=== PATIENT | female | born 1970 | race Caucasian/White ===

== ENCOUNTER 2019-11-03 10:24 | Emergency (ER) | payer BC, MEDICAID, SELFPAY ==
[2019-11-03 10:37] VITALS: BP 156/71; PULSE 83; RESP 18; TEMP 37.1; O2SAT 96; BMI 48.0
--- NOTE | 2019-11-03 10:48 | W.ED.SKABFB ---
HPI - Skin/Abscess/Foreign Bdy General: Chief complaint: Skin/Abscess/Foreign Body Stated complaint: rash on leg Time Seen by Provider: 11/03/19 10:26 Source: patient History of Present Illness: HPI narrative: Patient was working in yard weed eating wearing shorts, patient states that she got into some weeds that she was trimming back. Shortly that evening and into this morning she has developed a rash covering her lower extremities with areas of blistering along the bends of her knees and inner aspect of bilateral lower legs. Patient states that areas the grass flew up and hit her along her neck are also starting to have small blistering areas. 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 MD complaint: rash Location: generalized, neck, LLE and RLE Severity: moderate Quality: pruritic Pain Consistency: constant Treatments prior to arrival: other (She has been spraying alcohol to dry the rash.) Review of Systems General: Reports: 10 or more systems reviewed and unremarkable except in HPI and below Skin/Breast: Reports: rash, pruritus, erythema and sores Physical Exam Const: COMMON NORMALS: no acute distress, average body habitus and patient oriented x3 HENMT: COMMON NORMALS: normocephalic and atraumatic HEAD & SCALP: normocephalic and atraumatic Eye: COMMON NORMALS: Equal, round and reactive pupils present GENERAL EYE: appearance normal, both eyes and all related structures PUPIL: Yes Equal, round and reactive pupils present Neck/C-Spine: COMMON NORMALS: full ROM, no lymphadenopathy and no JVD GENERAL: Yes normal visual inspection Lymph: LYMPHATIC: no lymphadenopathy noted Resp: COMMON NORMALS: normal respiratory effort, No retractions, No use of accessory muscles, clear to auscultation bilaterally and percussion normal AUSCULTATION: clear to auscultation bilaterally PERCUSSION: percussion normal Cardio: COMMON NORMALS: no JVD, regular rate, regular rhythm, S1 normal heart sound present and S2 normal heart sound present RATE: regular rate RHYTHM: regular rhythm HEART SOUNDS: S1 normal heart sound present and S2 normal heart sound present GI: COMMON NORMALS: Normal to inspection, nondistended, normoactive bowel sounds present, Soft to palpation and non-tender PALPATION: Yes Soft to palpation Neuro: COMMON NORMALS: patient oriented x3, CN's II-XII intact bilaterally and moves all extremities Psych: COMMON NORMALS: mental status grossly normal, Normal thought process present and cooperative THOUGHT PROCESS: Normal thought process present Skin: SKIN IMAGES (FEMALE): 1. Diffuse rash covering bilateral lower extremities areas of blistering, and ruptured blistering. Erythema. 2. Diffuse rash covering bilateral lower extremities areas of blistering, and ruptured blistering. Erythema. Course Vital Signs: Vital signs: Vital Signs Temperature 98.8 F 11/03/19 10:37 Pulse Rate 83 11/03/19 10:37 Respiratory Rate 18 11/03/19 10:37 Blood Pressure 156/71 11/03/19 10:37 Pulse Oximetry 96 11/03/19 10:37 Discharge Plan Discharge Patient Disposition: Home, Self-Care Clinical Impression: Poison oak dermatitis Condition: Stable Prescriptions: New hydroxyzine HCl 50 mg tablet 50 mg PO Q6H 3 Days Qty: 12 RF: 0 prednisone 5 mg tablets,dose pack See Rx Instructions .ROUTE .COMPLEX Qty: 21 RF: 0 Held hydroxyzine HCl 25 mg Tablet 25 mg PO BID PRN (Reason: Anxiety) RF: 0 Hold Instructions: Resume on 11/06/19. No Action oxycodone-acetaminophen 10-325 mg tablet 1 tab PO Q6H PRN (Reason: Pain) RF: 0 dextroamphetamine-amphetamine 20 mg tablet 20 mg PO DAILY RF: 0 albuterol sulfate 90 mcg/actuation HFA aerosol inhaler See Rx Instructions .ROUTE .COMPLEX RF: 0 aripiprazole 2 mg tablet 2 mg PO DAILY RF: 0 naproxen 250 mg Tablet 250 mg PO BID PRN (Reason: Pain) RF: 0 fiber Powder 3.4 g PO DAILY RF: 0 Discharge Orders: Discharge Order (Routine); Ordered 11/03/19 Ordered By: Debby Owen Referrals: Bill Sawyer DO [Family Provider] - Discharge Diet: Usual diet Discharge Activity: Resume usual activity Patient Instructions: [place], [place], and [place] - Adult Coding Level of Care Code ED Glued [employer] Tester for [place] Rosangela
[2019-11-03] MEDS: dexamethasone 10 mg/mL INJ 8 MG IM (11:11)
[2019-11-03 11:18] VITALS: BP 121/78; PULSE 91; RESP 18; O2SAT 97
== END 2019-11-03 11:19 | disposition home or self-care (01) ==
PROVIDERS: Emergency Provider Nurse Practitioner Family; Family Provider Family Medicine
DX: L23.7 Allergic contact dermatitis due to plants, except food (principal)
CPT/HCPCS: 12345; 96372; 96375; 99281; 99283; J1100